=== PATIENT | female | born 2000 | race Caucasian/White ===

== ENCOUNTER 2019-03-18 20:56 | Emergency (ER) | payer MEDICAID ==
[~2019-03-18] VITALS: Ht 167.6 cm; Wt 105.6 kg
[~2019-03-18 20:56] MED LIST: CEPH-443 PO; HYDR-3029 PO; SULF1TAB31 PO
[2019-03-18 21:07] VITALS: Ht 167.6 cm; Wt 105.6 kg
[2019-03-18] MEDS ORDERED: hydrOXYzine HCL 25 MG TAB PO ONE (22:30)
[2019-03-18 23:40] VITALS: BP 119/69; PULSE 99; RESP 16
== END 2019-03-18 23:40 | disposition home or self-care (01) ==
LOC: FTE 20:56
DX: O26.891 Other specified pregnancy related conditions, first trimester (principal); R00.2 Palpitations; R00.0 Tachycardia, unspecified; Z3A.01 Less than 8 weeks gestation of pregnancy
CPT/HCPCS: 84235; 84439; 93005; Z7502; Z7610

== ENCOUNTER 2019-04-05 18:21 | Emergency (ER) | payer MEDICAID ==
[~2019-04-05] VITALS: Ht 167.6 cm; Wt 103.5 kg
[~2019-04-05 18:21] MED LIST changes: -HYDR-3029 PO
[2019-04-05 18:47] VITALS: BP 134/63; PULSE 84; RESP 19; Ht 167.6 cm; Wt 103.5 kg
== END 2019-04-05 20:00 | disposition home or self-care (01) ==
LOC: FTE 18:21
DX: L03.311 Cellulitis of abdominal wall (principal); T81.41XA Infection following a procedure, superficial incisional surgical site, initial encounter; Y82.8 Other medical devices associated with adverse incidents
CPT/HCPCS: 99283